=== PATIENT | female | born 1980 | race Caucasian/White ===

== ENCOUNTER → 2016-10-12 | Outpatient (CLI) | payer BC ==
--- NOTE | 2016-10-12 15:19 | CT ---
EXAMINATION TYPE: CT brain wo con DATE OF EXAM: 10/12/2016 3:14 PM COMPARISON: NONE HISTORY: Pt states of ROSE x11 days. CT DLP: 882.[address] of the brain was performed. The ventricles, basal cisterns and sulci overlying the cerebral convexities demonstrate a normal appe arance. There is no evidence for intracranial hemorrhage or sulcal effacement. No mass effects are seen. Osseous calvarium is intact. If symptoms persist consider MRI as clinically warranted. IMPRESSION: 1. No acute intracranial process is seen at this time.
== END | disposition home or self-care (01) ==
LOC: RADCTMAIN 14:51
PROVIDERS: ATTEND Family Medicine
DX: R51 Headache (principal)
CPT/HCPCS: 70450

== ENCOUNTER → 2016-11-09 | Outpatient (CLI) | payer BC ==
--- NOTE | 2016-11-09 16:03 | MR ---
EXAMINATION TYPE: MR brain wo con DATE OF EXAM: 11/09/2016 3:38 PM COMPARISON: NONE HISTORY: Headaches T1-weighted sagittal, T2, FLAIR, and diffusion axial, and T2 coronal coronal views of the brain are s ubmitted. There is no evidence of acute ischemia. The ventricles, basal cisterns, and sulci overlying the conv exities are consistent with the patient's age. There is no mass effect. Craniocervical junction maintained. Sella turcica has a normal appearance. Cyst within the posterior nasopharynx appears benign. Changes of chronic mild sinusitis noted. White matter: No abnormal areas of signal seen within the white matter. IMPRESSION: 1. No acute intracranial process. 2. Mild chronic sinusitis.
== END | disposition home or self-care (01) ==
LOC: RADMRIMAIN 14:42
PROVIDERS: ATTEND Family Medicine
DX: R51 Headache (principal); J32.9 Chronic sinusitis, unspecified
CPT/HCPCS: 70551

== ENCOUNTER → 2017-03-28 | Outpatient (CLI) | payer BC ==
[2017-03-28 17:58] LABS: Basophils # (A) 0.1 k/uL (0-0.2); Basophils % (A) 1 %; CH 32.7; CHCM 35.1; Eosinophils # (A) 0.1 k/uL (0-0.7); Eosinophils % (A) 1 %; HCT 38.1 % (34.0-46.0); HDW 2.47; HGB 13.3 gm/dL (11.4-16.0); Luc # (Auto) 0.19; Luc % (Auto) 2; Lymphocytes # (A) 3.5 k/uL (1.0-4.8); Lymphocytes % (A) 40 %; MCH 32.7 pg (25.0-35.0); MCHC 34.9 g/dL (31.0-37.0); MCV 93.7 fL (80.0-100.0); Monocytes # (A) 0.4 k/uL (0-1.0); Monocytes % (A) 4 %; Neutrophils # (A) 4.5 k/uL (1.3-7.7); Neutrophils % (A) 52 %; RBC 4.07 m/uL (3.80-5.40); RDW 13.8 % (11.5-15.5); WBC 8.7 k/uL (3.8-10.6); WBC (Perox) 8.42
[2017-03-28 18:13] LABS: Bilirubin, Delta 0.3 mg/dL (0.0-0.2); Total Bilirubin 0.8 mg/dL (0.2-1.3); Total Protein 7.6 g/dL (6.3-8.2)
== END | disposition home or self-care (01) ==
LOC: LABWHC1 17:00
PROVIDERS: ATTEND Physician Assistant
DX: B18.2 Chronic viral hepatitis C (principal)
CPT/HCPCS: 36415; 80076; 85025; 87522

== ENCOUNTER → 2017-04-09 | Outpatient (CLI) | payer BC ==
--- NOTE | 2017-04-09 11:20 | US ---
EXAMINATION TYPE: US liver DATE OF EXAM: 04/09/2017 COMPARISON: NONE CLINICAL HISTORY: Hep C B18.2. Chronic Hep C, pt has no complaints at this time EXAM MEASUREMENTS: Liver Length: 15.9 cm Gallbladder Wall: 0.3 cm CBD: 0.5 cm Right Kidney: 10.3 x 3.6 x 4.4 cm Pancreas: wnl, tail obscured by overlying bowel gas Liver: wnl Gallbladder: wnl Evidence for sonographic Segura's sign: No CBD: wnl Right Kidney: wnl IMPRESSION: 1. Unremarkable liver by ultrasound. 2. Right upper quadrant is unremarkable.
== END | disposition home or self-care (01) ==
LOC: RADUSWWP 10:50
DX: B18.2 Chronic viral hepatitis C (principal)
CPT/HCPCS: 76705

== ENCOUNTER → 2017-05-17 | Outpatient (CLI) | payer BC | END | disposition home or self-care (01) | LOC: LABWHC1 11:26 | PROVIDERS: ATTEND Physician Assistant | DX: B18.2 Chronic viral hepatitis C (principal) | CPT/HCPCS: 36415; 87902 ==

== ENCOUNTER 2017-09-09 21:01 | Emergency (ER) | payer BC ==
[2017-09-09 21:17] VITALS: BP 139/95; PULSE 71; RESP 18; TEMP 97.7
[2017-09-09] MEDS ORDERED: KETOROLAC 30 MG/ML 1 ML VIAL IM STA (21:34)
[2017-09-09] MEDS ORDERED: ORPHENADRINE 30 MG/ML 2 ML VIAL IM STA (21:34)
--- NOTE | 2017-09-09 21:44 | ED ---
Back Pain HPI - General Chief Complaint: Back Pain/Injury Stated Complaint: Back Pain Time Seen by Provider: 09/09/17 21:22 Source: patient, RN notes reviewed Limitations: no limitations - History of Present Illness Initial Comments: This is a 37-year-old female who presents to the emergency department with chief complaint of back pain. Patient states that she normally gets "knots" in her shoulders. However, this morning when she woke up today she had difficulty getting out of bed due to upper back pain. 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 Patient states that she laid in bed for most of the day. Patient states that the majority of her pain is localized between her shoulder blades, especially on the left side. Pain is made worse with bending backwards and neck movement, however denies any neck pain. Patient denies IV drug use. She states that she used to be an IV drug user and has hepatitis C, however has not used IV drugs in a long time. She denies saddle paresthesias or loss of bladder or bowel function. She denies any radiation of pain down the legs or numbness/tingling. Denies any falls, injuries or trauma. Denies fever, chills, chest pain, shortness of breath, abdominal pain, nausea or vomiting, constipation or diarrhea, dysuria or hematuria, numbness or tingling, headache or vision changes. - Related Data Home Medications Medication Instructions Recorded Confirmed Cetirizine HCl [Zyrtec] 10 mg PO DAILY PRN 08/20/17 08/20/17 Fluticasone Nasal [place] [Flonase 2 spr EA NOSTRIL DAILY PRN 08/20/17 08/20/17 Nasal [place]] Multivitamins, Thera [Multivitamin 1 tab PO DAILY 08/20/17 08/20/17 (formulary)] Previous Rx's Medication Instructions Recorded Cyclobenzaprine [Flexeril] 10 mg PO TID #21 tab 09/09/17 Ibuprofen 600 mg PO Q6HR #30 tablet 09/09/17 Allergies Allergy/AdvReac Type Severity Reaction Status Date / Time No Known Allergies Allergy Verified 09/09/17 21:17 Review of Systems ROS Statement: Those systems with pertinent positive or pertinent negative responses have been documented in the HPI. ROS Other: All systems not noted in ROS Statement are negative. Past Medical History Past Medical History: No Reported History Additional Past Medical History / Comment(s): hernia History of Any Multi-Drug Resistant Organisms: None Reported Past Surgical History: Orthopedic Surgery Additional Past Surgical History / Comment(s): righ ovary surgery Past Psychological History: No Psychological Hx Reported, Anxiety Smoking Status: Current every day smoker Past Alcohol Use History: None Reported Past Drug Use History: None Reported General Exam - General Exam Comments Initial Comments: General: Awake and alert, well-developed; in no apparent distress. HEENT: Head atraumatic, normocephalic. Pupils are equal, round and reactive to light. Extraocular movements intact. Oropharynx moist without erythema or exudate. Neck: Supple. Normal ROM. No tenderness. Back: Tenderness on palpation of left sided rhomboid and trapezius muscles. No vertebral bony point tenderness along the entire vertebrae. No SI joint tenderness. No paraspinal lumbar tenderness. Sensation is intact. Pedal pulses are 2+ equal and palpable bilaterally. Pain is elicited with flexion of shoulder. No tenderness with abduction or abduction of shoulder. Cardiovascular: Regular rate and rhythm. No murmurs, rubs or gallops. Chest symmetrical. Respiratory: Lungs clear to auscultation bilaterally. No wheezes, rales or rhonchi. Normal respiratory effort with no use of accessory muscles. Skin: [place], warm and dry without rashes or lesions. Neurological: Alert and oriented x3. CN II-XII grossly intact. Speech is fluent and answers are appropriate. No focal neuro deficits. Psychiatric: Normal mood and affect. No overt signs of depression or anxiety noted. Limitations: no limitations Course Vital Signs 09/09/17 21:13 Temperature 97.7 F Pulse Rate 71 Respiratory 18 Rate Blood Pressure 139/95 O2 Sat by Pulse 99 Oximetry Medical Decision Making - Medical Decision Making This is a 37-year-old female presents to the emergency department with chief complaint of upper back pain. Patient denies any injuries or trauma. She states that she thinks she "overdid it" yesterday. Patient denies any saddle paresthesias or loss of bladder or bowel function. She denies IV drug use. She denies any numbness or tingling or radiation of pain down the legs. Tenderness on palpation of left-sided rhomboid and trapezius muscles. Patient given Norflex and Toradol while in the emergency department. On reevaluation, patient states that she does not feel much better. I recommended x-ray of the scapula and thoracic spine, however patient declined. She states that she feels like she needs some more rest. Would like to be discharged home with prescription for anti-inflammatories and muscle relaxers and have the next couple of days off of work. The patient states that if symptoms worsen she will return to the emergency department. all questions were answered. Disposition Clinical Impression: Thoracic back pain Disposition: HOME SELF-CARE Condition: Good Instructions: Muscle Strain (ED), Musculoskeletal Pain (ED) Additional Instructions: Please take medications as prescribed. Please follow up with primary care provider within 1-2 days. Return to emergency department if symptoms should worsen or any concerns arise. Prescriptions: Cyclobenzaprine [Flexeril] 10 mg PO TID #21 tab Ibuprofen 600 mg PO Q6HR #30 tablet Referrals: Janny Barnett MD [Primary Care Provider] - 1-2 days Time of Disposition: 22:25
== END 2017-09-09 22:29 | disposition home or self-care (01) ==
LOC: EC 21:01
DX: M54.6 Pain in thoracic spine (principal); F17.200 Nicotine dependence, unspecified, uncomplicated; Z79.899 Other long term (current) drug therapy
CPT/HCPCS: 99283; 96372 ×2; J2360; J1885

== ENCOUNTER → 2017-09-11 | Outpatient (CLI) | payer BC | END | disposition home or self-care (01) | LOC: LABWHC1 09:00 | PROVIDERS: ATTEND Anesthesiology | DX: Z01.812 Encounter for preprocedural laboratory examination (principal) | CPT/HCPCS: 36415; 86850; 86900; 86901 ==

== ENCOUNTER 2017-09-17 08:57 | Day surgery (SDC) | payer BC ==
[2017-09-11 23:26] VITALS: BMI 29.2
[~2017-09-17 08:57] MED LIST: DEXAMETHASONE SOD PHOSPHATE 10 MG/ML 1 ML VIAL IV ONE; HEPARIN SODIUM,PORCINE 5,000 UNIT/ML 1 ML VIAL SQ ONE; LACTATED RINGERS 1,000 ML IV SCH; LIDOCAINE 1% 20 ML VIAL (10MG/ML) FOR IV START INTRADERMA PRN; MIDAZOLAM 2 MG/2 ML VIAL IV PRN; ONDANSETRON 4 MG/2 ML VIAL IVP ONE; SCOPOLAMINE 1.5MG/72HR PATCH TRANSDERM ONE
--- NOTE | 2017-09-17 09:30 | P.GSHP ---
History of Present Illness H&P Date: 09/17/17 Chief Complaint: Incarcerated ventral hernia, incarcerated umbilical hernia This is a 37-year-old female referred from Dr. Romeo Lucas. Patient rents today for laparoscopic robotic-assisted repair of incarcerated ventral hernia incarcerated umbilical hernia. Patient's 2 separate hernias ventral hernias located approximately 5 cm above the umbilicus. Past Medical History Past Medical History: No Reported History Additional Past Medical History / Comment(s): UMBILICAL AND VENTRAL HERNIA. BACK PAIN. SEASONAL ALLERGIES History of Any Multi-Drug Resistant Organisms: None Reported Past Surgical History: Orthopedic Surgery Additional Past Surgical History / Comment(s): SX RT WRIST. MASS REMOVED FROM RT OVARY Past Anesthesia/Blood Transfusion Reactions: No Reported Reaction Smoking Status: Current every day smoker - Past Family History Mother Family Medical History: No Reported History Medications and Allergies Home Medications Medication Instructions Recorded Confirmed Type Cetirizine HCl [Zyrtec] 10 mg PO DAILY PRN 08/20/17 09/17/17 History Fluticasone Nasal [place] [Flonase 2 spr EA NOSTRIL DAILY PRN 08/20/17 09/17/17 History Nasal [place]] Multivitamins, Thera [Multivitamin 1 tab PO DAILY 08/20/17 09/17/17 History (formulary)] Cyclobenzaprine [Flexeril] 10 mg PO TID #21 tab 09/09/17 09/17/17 Rx Ibuprofen 600 mg PO Q6HR #30 tablet 09/09/17 09/17/17 Rx Allergies Allergy/AdvReac Type Severity Reaction Status Date / Time No Known Allergies Allergy Verified 09/17/17 09:13 Surgical - Exam Vital Signs Temp Pulse Resp BP Pulse Ox 98.1 F 95 16 116/74 96 09/17/17 09:10 09/17/17 09:10 09/17/17 09:10 09/17/17 09:10 09/17/17 09:10 - General well developed, no distress - Eyes PERRL - ENT normal pinna - Neck no masses - Respiratory normal expansion - Cardiovascular Rhythm: regular - Abdomen Abdomen: soft, non tender Hernia: epigastric (3 cm midline epigastric ventral hernia), umbilical (2 cm incarcerated umbilical hernia) Assessment and Plan Assessment: incarcerated umbilical and ventral hernia, will perform robotic repair
[2017-09-17] MEDS ORDERED: fentaNYL (PF) 50 MCG/ML 2 ML AMP ONE (09:38)
[2017-09-17] MEDS ORDERED: GLYCOPYRROLATE 0.2 MG/ML 2 ML VIAL ONE (09:38)
[2017-09-17] MEDS ORDERED: PROPOFOL 10 MG/ML 20 ML VIAL IV ONE (09:38)
[2017-09-17] MEDS ORDERED: LIDOCAINE 1% INJ 10MG/ML (20 ML MDV) ONE (09:38)
[2017-09-17] MEDS ORDERED: HYDROmorphone (PF) 1 MG/ML ONE (09:38)
[2017-09-17] MEDS ORDERED: ROCURONIUM BROMIDE 10 MG/ML 10 ML VIAL IV ONE (09:38)
[2017-09-17] MEDS ORDERED: NEOSTIGMINE 1 MG/ML 10 ML VIAL ONE (09:38)
[2017-09-17] MEDS ORDERED: SUCCINYLCHOLINE CHLORIDE 100 MG/5 ML SYR IV ONE (09:38)
[2017-09-17] MEDS: ceFAZolin IN SWFI 2 GM/20 ML SYRINGE IVP ONE ×3 (09:38→09:57)
[2017-09-17] MEDS ORDERED: MIDAZOLAM 2 MG/2 ML VIAL ONE (09:38)
[2017-09-17] MEDS ORDERED: BUPIVACAINE-EPI 0.5%-1:200,000 10 ML VIAL SQ ONE (09:53)
--- NOTE | 2017-09-17 11:04 | P.OP ---
Date of Procedure: 09/17/17 Preoperative Diagnosis: Incarcerated umbilical hernia Incarcerated ventral hernia Postoperative Diagnosis: Incarcerated umbilical hernia Incarcerated ventral hernia Procedure(s) Performed: Laparoscopic robotic-assisted repair of incarcerated umbilical hernia Laparoscopic robotic-assisted repair of incarcerated ventral hernia Anesthesia: OLLIE Surgeon: Saul Corona Estimated Blood Loss (ml): 5 Pathology: none sent Condition: stable Disposition: PACU Description of Procedure: The patient's placed on the operating table in the supine position. She received general anesthesia. Her abdomen was prepped and draped usual fashion. Using a 5 mm optical trocar under direct visualization the Cavity is entered. The abdomen insufflated. After adequate insufflation the laparoscope placed back into the perineal cavity. Next a 8 mm by trochars placed left lower quadrant and a 12 mm robotic trochars placed left lateral position. The original 5 mm trocar was exchanged for an 8 mm robotic trocar. The patient was placed in the left side up position. The patient was docked the robot. The patient had incarcerated ventral hernia. Using the hook cautery the incarcerated Fat was excised. In the fascial defect was visualized. The fascial defect was then closed using oh the lock suture. Next the incarcerated umbilical hernia repair. Using the cautery the incarcerated fat within the umbilicus was dissected free. And then the fascial defect was closed OV lock suture. Next a piece of 10 x [address] mesh was placed. Cavity. This was secured with 2 OV lock suture. The mesh spanned over both hernia sites. Next the patient was undocked from the robot. The needles were retrieved. The fascia of the 12 mm trocar site was closed with 0 Ethibond suture. The trochars were withdrawn. And the skin was closed interrupted 3-0 Monocryl suture. Dermabond was applied. Patient top she will was sent to recovery in stable condition.
[2017-09-17] MEDS ORDERED: diphenhydrAMINE 50 MG/ML 1 ML VIAL IVP ONE (11:07)
[2017-09-17] MEDS ORDERED: KETOROLAC 30 MG/ML 1 ML VIAL IVP ONE (11:07)
[2017-09-17 11:14] VITALS: TEMP 98.4
[2017-09-17] MEDS: HYDROmorphone 0.5 MG/0.5 ML SYRINGE IVP PRN ×4 (11:20→11:58)
[2017-09-17 11:47] VITALS: RESP 18
[2017-09-17] MEDS ORDERED: MEPERIDINE 50 MG/ML SYRINGE IVP ONE (12:00)
[2017-09-17] MEDS ORDERED: HYDROcodone/APAP 7.5-325MG 1 EACH TAB PO ONE (12:30)
[2017-09-17 13:10] VITALS: BP 110/79; PULSE 94
== END 2017-09-17 13:54 | disposition home or self-care (01) ==
LOC: OR 08:57
PROVIDERS: ATTEND Surgery
DX: K42.0 Umbilical hernia with obstruction, without gangrene (principal); K43.6 Other and unspecified ventral hernia with obstruction, without gangrene; F17.200 Nicotine dependence, unspecified, uncomplicated; Z79.1 Long term (current) use of non-steroidal anti-inflammatories (NSAID); Z79.899 Other long term (current) drug therapy; Z91.09 Other allergy status, other than to drugs and biological substances
CPT/HCPCS: 49653; S2900; 36415; 81025; 86850; 86900; 86901

== ENCOUNTER 2017-10-08 08:25 | Day surgery (SDC) | payer BC ==
[2017-10-07 12:53] VITALS: BMI 29.2
[~2017-10-08 08:25] MED LIST changes: -DEXAMETHASONE SOD PHOSPHATE 10 MG/ML 1 ML VIAL IV ONE; -HEPARIN SODIUM,PORCINE 5,000 UNIT/ML 1 ML VIAL SQ ONE; -LIDOCAINE 1% 20 ML VIAL (10MG/ML) FOR IV START INTRADERMA PRN; -MIDAZOLAM 2 MG/2 ML VIAL IV PRN; -ONDANSETRON 4 MG/2 ML VIAL IVP ONE; -SCOPOLAMINE 1.5MG/72HR PATCH TRANSDERM ONE
[2017-10-08 09:30] VITALS: TEMP 97.1
[2017-10-08] MEDS ORDERED: LIDOCAINE 1% 20 ML VIAL (10MG/ML) FOR IV START INTRADERMA ONE (09:30)
[2017-10-08] MEDS ORDERED: fentaNYL (PF) 50 MCG/ML 2 ML AMP ONE (09:41)
[2017-10-08] MEDS ORDERED: PROPOFOL 10 MG/ML 20 ML VIAL IV ONE (09:41)
[2017-10-08] MEDS ORDERED: GLYCOPYRROLATE 0.2 MG/ML 2 ML VIAL ONE (09:41)
--- NOTE | 2017-10-08 09:42 | P.GSHP ---
History of Present Illness H&P Date: 10/08/17 Chief Complaint: GI bleed This is a 37-year-old female who's had complaints of black melanotic stools. Patient presents today for EGD. Past Medical History Past Medical History: No Reported History Additional Past Medical History / Comment(s): hernia. pt states has been having blood in stools since last week History of Any Multi-Drug Resistant Organisms: None Reported Past Surgical History: Hernia Repair, Orthopedic Surgery Additional Past Surgical History / Comment(s): righ ovary surgery Past Anesthesia/Blood Transfusion Reactions: No Reported Reaction Past Psychological History: Anxiety Smoking Status: Current every day smoker Past Alcohol Use History: None Reported Additional Past Alcohol Use History / Comment(s): SMOKES 1/2 PPD SINCE AGE 12 Past Drug Use History: None Reported - Past Family History Mother Family Medical History: No Reported History Medications and Allergies Home Medications Medication Instructions Recorded Confirmed Type Cetirizine HCl [Zyrtec] 10 mg PO DAILY PRN 08/20/17 10/07/17 History Fluticasone Nasal [place] [Flonase 2 spr EA NOSTRIL DAILY PRN 08/20/17 10/07/17 History Nasal [place]] Ibuprofen 600 mg PO Q6HR #30 tablet 09/09/17 10/07/17 Rx diphenhydrAMINE [Benadryl] 25 mg PO BID PRN 10/07/17 10/07/17 History Diphenhydra/Phenyleph/Acetamin 1 each PO DIRECTED PRN 10/08/17 10/08/17 History [Theraflu Expressmax Night Cplt] Allergies Allergy/AdvReac Type Severity Reaction Status Date / Time No Known Allergies Allergy Verified 10/07/17 12:47 Surgical - Exam Vital Signs Temp Pulse Resp BP Pulse Ox 97.1 F L 86 18 118/81 99 10/08/17 09:28 10/08/17 09:28 10/08/17 09:28 10/08/17 09:28 10/08/17 09:28 - General well developed, no distress - Eyes PERRL - ENT normal pinna - Neck no masses - Respiratory normal expansion - Cardiovascular Rhythm: regular - Abdomen Abdomen: soft, non tender Assessment and Plan Assessment: GI bleed. We'll perform EGD.
--- NOTE | 2017-10-08 10:04 | P.OP ---
Date of Procedure: 10/08/17 Preoperative Diagnosis: GI bleed Postoperative Diagnosis: Antral gastritis Procedure(s) Performed: EGD Anesthesia: MAC Surgeon: Saul Corona Pathology: other (Antrum) Condition: stable Disposition: PACU Description of Procedure: The patient's placed on the endoscopy table in the lateral position. She received IV sedation. The gastroscope placed oropharynx and passed in the esophagus and into the stomach. Scope was then placed through the pylorus. The first and second portion of the duodenum appeared normal. The scope was then brought back the antrum and this appeared inflamed. A biopsies was performed. The scope was then retroflexed and the remainder of the stomach appeared normal. There was no significant hiatal hernia. The GE junction was at 40 cm. The distal esophagus and proximal esophagus. Normal. Scope was withdrawn for patient.
[2017-10-08 10:11] VITALS: BP 107/65; PULSE 78; RESP 18
== END 2017-10-08 10:27 | disposition home or self-care (01) ==
LOC: ORWHC2ENDO 08:25
PROVIDERS: ATTEND Surgery
DX: K29.50 Unspecified chronic gastritis without bleeding (principal); B96.81 Helicobacter pylori [H. pylori] as the cause of diseases classified elsewhere; B19.20 Unspecified viral hepatitis C without hepatic coma; F17.210 Nicotine dependence, cigarettes, uncomplicated; Z79.1 Long term (current) use of non-steroidal anti-inflammatories (NSAID); Z79.899 Other long term (current) drug therapy
CPT/HCPCS: 81025; 88305; 88342; 43239; J3010; J2704

== ENCOUNTER → 2017-12-20 | Outpatient (CLI) | payer BC ==
[2017-12-20 14:52] LABS: Albumin 4.3 g/dL (3.5-5.0); Bilirubin, Delta 0.2 mg/dL (0.0-0.2); Bilirubin,Unconjugated 0.5 mg/dL (0.0-1.1); Total Bilirubin 0.7 mg/dL (0.2-1.3); Total Protein 7.2 g/dL (6.3-8.2)
[2017-12-20 14:55] LABS: Basophils # (A) 0.1 k/uL (0-0.2); Basophils % (A) 1 %; Eosinophils # (A) 0.1 k/uL (0-0.7); Eosinophils % (A) 1 %; HCT 34.5 % (34.0-46.0); HGB 12.3 gm/dL (11.4-16.0); Lymphocytes % (A) 42 %; MCH 31.6 pg (25.0-35.0); MCHC 35.5 g/dL (31.0-37.0); MCV 88.9 fL (80.0-100.0); Mean Platelet Volume 7.2; Monocytes # (A) 0.3 k/uL (0-1.0); Monocytes % (A) 4 %; Neutrophils # (A) 3.4 k/uL (1.3-7.7); Neutrophils % (A) 48 %; Platelet Count 300 k/uL (150-450); RBC 3.89 m/uL (3.80-5.40); WBC 7.1 k/uL (3.8-10.6)
[2017-12-23 09:34] LABS: Hepatits C Virus RNA Not detected (Not detected); Hepatits C Virus RNA, Quant <12 IU/mL (<12); LOG HCV IU/mL <1.08 (<1.08)
== END | disposition home or self-care (01) ==
LOC: LABWHC1 14:17
PROVIDERS: ATTEND Physician Assistant
DX: B18.2 Chronic viral hepatitis C (principal)
CPT/HCPCS: 36415; 80076; 85025; 87522

== ENCOUNTER → 2019-06-19 | Outpatient (CLI) | payer BC ==
--- NOTE | 2019-06-19 08:23 | MR ---
EXAMINATION TYPE: MR brain wo con DATE OF EXAM: 06/19/2019 COMPARISON: MRI brain November 09, 2016. CT brain October 12, 2016 HISTORY: Headache TECHNIQUE: Multiplanar, multisequence imaging of the brain and brainstem is performed without IV cont rast. FINDINGS: Diffusion weighted images demonstrate no evidence of a recent infarct or other diffusion abnormality. There is no extraaxial fluid collection or significant white matter signal abnormality. The ventricu lar system and cisternal spaces are normal in size and appearance. The brain volume is age appropria te. Midline structures demonstrate normal morphology. The craniocervical junction appears within normal limits. Normal vascular flow voids are present. Stable mild mucosal thickening bilateral ethmoid sinu ses. The visualized sinuses are otherwise clear and the globes are intact. Nasal septum remains devia estelita to left of midline. IMPRESSION: No significant change from prior studies. No suspicious white matter changes or new findi ngs are identified.
== END | disposition home or self-care (01) ==
LOC: RADMRIMAIN 07:30
PROVIDERS: ATTEND Family Medicine
DX: R51 Headache (principal)
CPT/HCPCS: 70551

== ENCOUNTER → 2019-08-14 | Outpatient (CLI) | payer BC | END | disposition home or self-care (01) | LOC: LABWHC1 15:47 | PROVIDERS: ATTEND Obstetrics & Gynecology | DX: N95.1 Menopausal and female climacteric states (principal) | CPT/HCPCS: 36415; 82670; 84144 ==

== ENCOUNTER 2019-09-06 15:17 | Emergency (ER) | payer BC | END 2019-09-06 16:10 | disposition left against medical advice (07) | LOC: EC 15:17 | DX: Z53.21 Procedure and treatment not carried out due to patient leaving prior to being seen by health care provider (principal) | CPT/HCPCS: 99499 ==

== ENCOUNTER 2019-09-09 13:10 | Emergency (ER) | payer BC, OTHER ==
[2019-09-09 13:19] VITALS: BP 130/87; PULSE 98; RESP 20; TEMP 97.9
[2019-09-09] MEDS ORDERED: predniSONE 50 MG TAB PO STA (14:10)
[2019-09-09] MEDS ORDERED: CYCLOBENZAPRINE 10MG STARTER 3 TAB BTL PO STA (14:45)
[2019-09-09] MEDS ORDERED: ACET/COD 300 MG/30 MG STARTER PACK 6 TAB BTL PO STA (14:48)
--- NOTE | 2019-09-09 14:56 | ED ---
General Adult HPI - General Chief complaint: Back Pain/Injury Stated complaint: [facility] - low back pain Time Seen by Provider: 09/09/19 13:28 Source: patient, RN notes reviewed, old records reviewed Mode of arrival: ambulatory Limitations: no limitations - History of Present Illness Initial comments: 39-year-old female patient presented to ED for chief complaint of paralumbar back strain. Patient reports that yesterday while at work she was bending over to grab something, patient reports that she felt as if her left paralumbar back and then she fell towards a file cabinet. Denies any loss of consciousness, trauma to head or neck. Reports that after the fall she initially felt fine. Then she began experience left paralumbar back pain and tightness. She reports that she went to occupational health that day with a tick x-rays which are negative and sent her home with a prescription for muscle relaxers and ibuprofen. Patient was assessed on her lumbar back is been very tight. She has been having some waxing and waning paresthesias in her feet. Force of the pain is going down the back of her left leg. She has still been able to without diff iculty. Denies any red flag symptoms. Denies any saddle anesthesia, loss of bowel or bladder control. Denies any other complaints at this time. Systemic: Pt denies fatigue, fever/chills, rash. Pt denies weakness, night sweats, weight loss. Neuro: Pt denies headache, visual disturbances, syncope or pre-syncope. HEENT: Pt denies ocular discharge or irritation, otalgia, rhinorrhea, pharyngitis or notable lymphadenopathy. Cardiopulmonary: Pt denies chest pain, SOB, heart palpitations, dyspnea on exertion. Abdominal/GI: Pt denies abdominal pain, n/v/d. : Pt denies dysuria, burning w/ urination, frequency/urgency. Denies new onset urinary or bowel incontinence. MSK: Pt denies myalgia, loss of strength or function in extremities. Neuro: Pt denies new onset weakness, paresthesias. - Related Data Home Medications Medication Instructions Recorded Confirmed Cetirizine HCl [Zyrtec] 10 mg PO DAILY PRN 08/20/17 10/07/17 Fluticasone Nasal [place] [Flonase 2 spr EA NOSTRIL DAILY PRN 08/20/17 10/07/17 Nasal [place]] diphenhydrAMINE [Benadryl] 25 mg PO BID PRN 10/07/17 10/07/17 Diphenhydra/Phenyleph/Acetamin 1 each PO DIRECTED PRN 10/08/17 10/08/17 [Theraflu Expressmax Night Cplt] Previous Rx's Medication Instructions Recorded Ibuprofen 600 mg PO Q6HR #30 tablet 09/09/17 Omeprazole 40 mg PO DAILY #60 capsule. 10/08/17 predniSONE 50 mg PO DAILY #4 tab 09/09/19 Allergies Allergy/AdvReac Type Severity Reaction Status Date / Time No Known Allergies Allergy Verified 09/09/19 13:19 Review of Systems ROS Statement: Those systems with pertinent positive or pertinent negative responses have been documented in the HPI. ROS Other: All systems not noted in ROS Statement are negative. Past Medical History Past Medical History: No Reported History Additional Past Medical History / Comment(s): hernia. pt states has been having blood in stools since last week History of Any Multi-Drug Resistant Organisms: None Reported Past Surgical History: Hernia Repair, Orthopedic Surgery Additional Past Surgical History / Comment(s): righ ovary surgery Past Anesthesia/Blood Transfusion Reactions: No Reported Reaction Past Psychological History: Anxiety Smoking Status: Current every day smoker Past Alcohol Use History: None Reported Past Drug Use History: None Reported - Past Family History Mother Family Medical History: No Reported History General Exam - General Exam Comments Initial Comments: Constitutional: NAD, AOX3, Pt has pleasant affect. HEENT: NC/AT, trachea midline, neck supple, no lymphadenopathy. Posterior pharynx non erythematous, without exudates. External ears appear normal, without discharge. Mucous membranes moist. Eyes PERRLA, EOM intact. There is no scleral icterus. No pallor noted. Cardiopulmonary: RRR, no murmurs, rubs or gallops, no JVD noted. Lungs CTAB in anterior and posterior rogers. No peripheral edema. Abdominal exam: Abdomen soft and non-distended. Abdomen non-tender to palpation in all 4 quadrants. Bowel sounds active in LLQ. No hepatosplenomegaly. No ecchymosis Neuro: CN II-XII grossly intact. No nuchal rigidity. No raccon eyes, no lizama sign, no hemotympanum. No cervical spinal tenderness. MSK: Left Paralumbar back region tender to palpation. No skin changes. Straight leg raise positive bilaterally. Heel to toe walking intact. Motor 5 strength psoas quadriceps muscles. Sensation intact. No posterior calf tenderness bilaterally, homans sign negative bilaterally. Posterior tibialis and radial pulse +2 bilaterally. Sensation intact in upper and lower extremities. Full active ROM in upper and lower extremities, 5/5 stregnth. Limitations: no limitations Course Vital Signs 09/09/19 13:17 Temperature 97.9 F Pulse Rate 98 Respiratory 20 Rate Blood Pressure 130/87 O2 Sat by Pulse 99 Oximetry Medical Decision Making - Medical Decision Making 39-year-old female patient presents to ED for chief complaint of lumbar back strain with radiculopathy. This began yesterday. Patient reports that since yesterday she has become more tight, has had some paresthesias in her feet. Denies any red flag symptoms. Physical exam is consistent with lumbar back strain with radiculopathy. Patient declined plain films of the day and yesterday. Patient will be discharged with steroids, trial of different muscle relaxer, outpatient orthopedic follow-up. Return to ER if condition worsen. Patient denies a chance of being . Case discussed with Dr. Villa. Disposition Clinical Impression: Lumbar back sprain Disposition: HOME SELF-CARE Condition: Stable Instructions (If sedation given, give patient instructions): Acute Low Back Pain (ED) Additional Instructions: Follow-up with primary care provider tomorrow. Take medications as directed. May attempt to use Flexeril for muscle spasm. Either use the Flexeril or the previously prescribed muscle relaxer, do not use both in one day. Follow up with orthopedic consult symptoms persist. Return to ER if condition worsens. Prescriptions: predniSONE 50 mg PO DAILY #4 tab Is patient prescribed a controlled substance at d/c from ED?: No Referrals: Janny Barnett MD [Primary Care Provider] - 1-2 days Kaylynn Whitaker DO [Doctor of Osteopathic Medicine] - 1-2 days
== END 2019-09-09 15:09 | disposition home or self-care (01) ==
LOC: EC 13:10
DX: S33.5XXA Sprain of ligaments of lumbar spine, initial encounter (principal); F17.200 Nicotine dependence, unspecified, uncomplicated; X50.9XXA Other and unspecified overexertion or strenuous movements or postures, initial encounter; Y92.69 Other specified industrial and construction area as the place of occurrence of the external cause; Y99.0 Civilian activity done for income or pay
CPT/HCPCS: 99283; J7512

== ENCOUNTER → 2020-10-21 | Outpatient (CLI) | payer BC | END | disposition home or self-care (01) | LOC: LABWHC1 15:08 | PROVIDERS: ATTEND Obstetrics & Gynecology | DX: N95.1 Menopausal and female climacteric states (principal) | CPT/HCPCS: 36415; 82670; 84144 ==

== ENCOUNTER → 2021-03-09 | Outpatient (CLI) | payer BC ==
[2021-03-09 18:20] LABS: HCT 42.5 % (37.2-46.3); MCH 32.5 pg (27.0-32.0); MCHC 32.9 g/dL (32.0-37.0); MCV 98.6 fL (80.0-97.0); Mean Platelet Volume 10.9 fL (9.5-12.2); Platelet Count 251 X 10*3/uL (140-440); RBC 4.31 X 10*6/uL (4.10-5.20); RDW 12.9 % (11.5-14.5); WBC 8.82 X 10*3/uL (4.50-10.00)
[2021-03-09 21:22] LABS: Total Bilirubin 0.7 mg/dL (0.2-1.2)
[2021-03-09 21:23] LABS: Valproic Acid (Depakene) 31.3 ug/mL (50.0-100.0)
== END | disposition home or self-care (01) ==
LOC: LABWHC1 11:51
PROVIDERS: ATTEND Psychiatry & Neurology Psychiatry
DX: F31.32 Bipolar disorder, current episode depressed, moderate (principal)
CPT/HCPCS: 36415; 80164; 82247; 82947; 83615; 84450; 84460; 85027

== ENCOUNTER → 2021-04-18 | Outpatient (CLI) | payer BC ==
[2021-04-18 22:30] LABS: Hemoglobin A1C 5.1 % (4.0-6.0)
[2021-04-19 04:06] LABS: Chol/HDL Ratio 6.24; LDL Cholesterol,Calculated 172.2 mg/dL (0.0-131.0); VLDL Calculation 63.8 mg/dL (5.00-40.00)
== END | disposition home or self-care (01) ==
LOC: LABWHC1 12:19
PROVIDERS: ATTEND Physician Assistant
DX: F31.32 Bipolar disorder, current episode depressed, moderate (principal)
CPT/HCPCS: 36415; 80061; 83036

== ENCOUNTER → 2021-08-21 | Outpatient (CLI) | payer BC ==
[2021-08-21 08:38] LABS: Appearance,Urine Clear (Clear); Bilirubin,Urine Negative (Negative); Blood,Urine Negative (Negative); Color,Urine Yellow; Glucose,Urine (UA) Negative (Negative); Ketones,Urine Negative (Negative); Leukocyte Esterase,Urine Negative (Negative); Nitrite,Urine Negative (Negative); PH, Urine 7.5 (5.0-8.0); Protein,Urine Negative (Negative); Urobilinogen,Urine <2.0 mg/dL (<2.0)
[2021-08-21 11:13] LABS: Basophils # (A) 0.07 X 10*3/uL (0.00-0.10); Basophils % (A) 0.6 %; Eosinophils # (A) 0.08 X 10*3/uL (0.04-0.35); Eosinophils % (A) 0.7 %; HCT 42.8 % (37.2-46.3); HGB 14.4 g/dL (12.0-15.0); Lymphocytes # (A) 3.13 X 10*3/uL (0.90-5.00); Lymphocytes % (A) 27.1 %; MCH 32.4 pg (27.0-32.0); MCHC 33.6 g/dL (32.0-37.0); MCV 96.2 fL (80.0-97.0); Mean Platelet Volume 11.2 fL (9.5-12.2); Monocytes # (A) 0.58 X 10*3/uL (0.20-1.00); Neutrophils # (A) 7.64 X 10*3/uL (1.80-7.70); Neutrophils % (A) 66.3 %; Platelet Count 252 X 10*3/uL (140-440); RBC 4.45 X 10*6/uL (4.10-5.20); RDW 13.5 % (11.5-14.5); WBC 11.53 X 10*3/uL (4.50-10.00)
[2021-08-21 11:47] LABS: Valproic Acid (Depakene) 28.7 ug/mL (50.0-100.0)
[2021-08-21 11:52] LABS: ALT 15 U/L (8-44); AST 14 U/L (13-35); African American GFR (CKD) 115.9 (60.0-200.0); Albumin 4.3 g/dL (3.8-4.9); Albumin/Globulin Ratio 2.13 (1.60-3.17); Alkaline Phosphatase 63 U/L (41-126); BUN/Creat Ratio 11.29 Ratio (12.00-20.00); Blood Urea Nitrogen 8.4 mg/dL (9.0-27.0); Calcium 9.1 mg/dL (8.7-10.3); Carbon Dioxide 18.9 mmol/L (20.0-27.5); Chloride 107 mmol/L (96-109); Chol/HDL Ratio 2.68 Ratio; Glucose 101 mg/dL (70-110); LDL Cholesterol,Calculated 44.4 mg/dL (0.0-131.0); Potassium 4.8 mmol/L (3.5-5.5); Sodium 139 mmol/L (135-145); Total Protein 6.3 g/dL (6.2-8.2)
== END | disposition home or self-care (01) ==
LOC: LABWHC1 07:42
PROVIDERS: ATTEND Nurse Practitioner Psychiatric/Mental Health
DX: F31.32 Bipolar disorder, current episode depressed, moderate (principal)
CPT/HCPCS: 36415; 80053; 80061; 80164; 81003; 81025; 85025

== ENCOUNTER 2022-01-13 21:21 | Emergency (ER) | payer BC ==
[2022-01-13 21:25] VITALS: BP 121/85; PULSE 86; RESP 18; TEMP 97.5
--- NOTE | 2022-01-13 21:53 | ED ---
Medical Clearance HPI - General Chief complaint: Medical Clearance Stated complaint: Long-Term Clearance, Right Wrist Injury Time Seen by Provider: 01/13/22 21:41 Source: patient, RN notes reviewed, old records reviewed Mode of arrival: ambulatory Limitations: no limitations - History of Present Illness Initial comments: This is a 41-year-old female presenting by EMS patient's presenting today for evaluation of penitentiary clearance. Patient is complaining of right wrist pain. Patient is very argumentative angry during evaluation. Patient denying any significant distress or pain MD Complaint: medical clearance requested -: hour(s) Reason for Medical Clearance: other trauma Place: street Alleged Intoxication: No Compliant with Home Medications: No Traumatic Symptoms: denies traumatic injury Treatments Prior to Arrival: none Home medications: Home Medications Medication Instructions Recorded Confirmed Cetirizine HCl [Zyrtec] 10 mg PO DAILY PRN 08/20/17 10/07/17 Fluticasone Nasal [place] [Flonase 2 spr EA NOSTRIL DAILY PRN 08/20/17 10/07/17 Nasal [place]] diphenhydrAMINE [Benadryl] 25 mg PO BID PRN 10/07/17 10/07/17 Diphenhydra/Phenyleph/Acetamin 1 each PO DIRECTED PRN 10/08/17 10/08/17 [Theraflu Expressmax Night Cplt] Previous Rx's Medication Instructions Recorded Ibuprofen 600 mg PO Q6HR #30 tablet 09/09/17 Omeprazole 40 mg PO DAILY #60 capsule. 10/08/17 predniSONE 50 mg PO DAILY #4 tab 09/09/19 Allergies/Adverse reactions: Allergies Allergy/AdvReac Type Severity Reaction Status Date / Time No Known Allergies Allergy Verified 01/13/22 21:24 Review of Systems ROS Statement: Those systems with pertinent positive or pertinent negative responses have been documented in the HPI. ROS Other: All systems not noted in ROS Statement are negative. Past Medical History Past Medical History: No Reported History Additional Past Medical History / Comment(s): hernia. pt states has been having blood in stools since last week History of Any Multi-Drug Resistant Organisms: None Reported Past Surgical History: Hernia Repair, Orthopedic Surgery Additional Past Surgical History / Comment(s): righ ovary surgery Past Anesthesia/Blood Transfusion Reactions: No Reported Reaction Past Psychological History: Anxiety Smoking Status: Never smoker Past Alcohol Use History: Daily Past Drug Use History: None Reported - Past Family History Mother Family Medical History: No Reported History General Exam Limitations: no limitations General appearance: alert, in no apparent distress Head exam: Present: atraumatic, normocephalic, normal inspection Eye exam: Present: normal appearance, PERRL, EOMI. Absent: scleral icterus, conjunctival injection, periorbital swelling ENT exam: Present: normal exam, mucous membranes moist Neck exam: Present: normal inspection. Absent: tenderness, meningismus, lymphadenopathy Respiratory exam: Present: normal lung sounds bilaterally. Absent: respiratory distress, wheezes, rales, rhonchi, stridor Cardiovascular Exam: Present: regular rate, normal rhythm, normal heart sounds. Absent: systolic murmur, diastolic murmur, rubs, gallop, clicks GI/Abdominal exam: Present: soft, normal bowel sounds. Absent: distended, tenderness, guarding, rebound, rigid Extremities exam: Present: normal inspection, full ROM, normal capillary refill. Absent: tenderness, pedal edema, joint swelling, calf tenderness Back exam: Present: normal inspection Neurological exam: Present: alert, oriented X3, CN II-XII intact Psychiatric exam: Present: normal affect, normal mood Skin exam: Present: warm, dry, intact, normal color. Absent: rash Course Vital Signs 01/13/22 21:22 Temperature 97.5 F L Pulse Rate 86 Respiratory 18 Rate Blood Pressure 121/85 O2 Sat by Pulse 99 Oximetry - Reevaluation(s) Reevaluation #1: 01/13/22 21:50 Medical record is reviewed Reevaluation #2: 01/13/22 21:50 patient is in no acute distress Reevaluation #3: 01/13/22 21:50 patient questions are answered Medical Decision Making - Medical Decision Making 41 female to the emergency department for evaluation. Patient does have some wrist pain. X-ray negative. Patient is medically clear for incarceration and can be discharged home - Radiology Data Radiology results: report reviewed (X-ray was negative for acute disease), image reviewed Disposition Clinical Impression: Medical clearance for incarceration Disposition: HOME SELF-CARE Condition: Fair Instructions (If sedation given, give patient instructions): Normal Exam (ED) Is patient prescribed a controlled substance at d/c from ED?: No Referrals: Janny Barnett MD [Primary Care Provider] - 1-2 days
--- NOTE | 2022-01-13 21:58 | XR ---
EXAMINATION TYPE: XR wrist limited RT DATE OF EXAM: 01/13/2022 COMPARISON: NONE HISTORY: Wrist pain TECHNIQUE: 2 views FINDINGS: There is comminuted nondisplaced oblique fracture of the proximal shaft of the fifth metaca rpal. There is mild soft tissue swelling. No dislocation. IMPRESSION: Acute fracture of the proximal fifth metacarpal.
== END 2022-01-13 22:53 | disposition home or self-care (01) ==
LOC: EC 21:21
DX: Z02.89 Encounter for other administrative examinations (principal)
CPT/HCPCS: 99283

== ENCOUNTER → 2022-05-18 | Outpatient (CLI) | payer BC ==
[2022-05-18 18:22] LABS: Basophils # (A) 0.07 X 10*3/uL (0.00-0.10); Eosinophils # (A) 0.06 X 10*3/uL (0.04-0.35); Eosinophils % (A) 0.8 %; HCT 39.6 % (37.2-46.3); HGB 13.2 g/dL (12.0-15.0); Immature Grans, Automated 0.3 %; Lymphocytes % (A) 41.2 %; MCH 32.7 pg (27.0-32.0); MCHC 33.3 g/dL (32.0-37.0); Mean Platelet Volume 10.1 fL (9.5-12.2); Monocytes # (A) 0.39 X 10*3/uL (0.20-1.00); Monocytes % (A) 5.4 %; NRBC Per 100 WBC 0 /100 WBCS (0.0-0.0); Neutrophils # (A) 3.74 X 10*3/uL (1.80-7.70); Neutrophils % (A) 51.3 %; Platelet Count 309 X 10*3/uL (140-440); RBC 4.04 X 10*6/uL (4.10-5.20); RDW 12.9 % (11.5-14.5); WBC 7.28 X 10*3/uL (4.50-10.00)
[2022-05-18 19:07] LABS: Valproic Acid (Depakene) 18.2 ug/mL (50.0-100.0)
[2022-05-18 19:27] LABS: ALT 18 U/L (8-44); AST 13 U/L (13-35); Albumin 4.5 g/dL (3.8-4.9); Albumin/Globulin Ratio 2.14 (1.60-3.17); Alkaline Phosphatase 62 U/L (41-126); BUN/Creat Ratio 12.78 Ratio (12.00-20.00); Bilirubin, Conjugated <0.20 mg/dL (0.20-0.40); Blood Urea Nitrogen 11.5 mg/dL (9.0-27.0); Calcium 9.7 mg/dL (8.7-10.3); Carbon Dioxide 24.1 mmol/L (20.0-27.5); Chloride 106 mmol/L (96-109); Chol/HDL Ratio 4.41 Ratio; Globulin 2.1 g/dL (1.6-3.3); Glucose 93 mg/dL (70-110); LDL Cholesterol,Calculated 137.8 mg/dL (0.0-131.0); Non-African American GFR(CKD) 79.4 (60.0-200.0); Potassium 5.3 mmol/L (3.5-5.5); Sodium 141 mmol/L (135-145); Total Protein 6.6 g/dL (6.2-8.2)
== END | disposition home or self-care (01) ==
LOC: LABWHC1 11:04
DX: F31.32 Bipolar disorder, current episode depressed, moderate (principal); F43.12 Post-traumatic stress disorder, chronic
CPT/HCPCS: 36415; 80053; 80061; 80164; 82248; 82306; 83036; 85025

== ENCOUNTER → 2022-06-06 | Outpatient (CLI) | payer BC | END | disposition home or self-care (01) | LOC: LABWHC1 09:07 | PROVIDERS: ATTEND Counselor Professional | DX: F31.32 Bipolar disorder, current episode depressed, moderate (principal) | CPT/HCPCS: 36415; 80164 ==

== ENCOUNTER → 2023-02-26 | Outpatient (CLI) | payer BC ==
[2023-02-27 05:23] LABS: Basophils # (A) 0.07 X 10*3/uL (0.00-0.10); Eosinophils # (A) 0.08 X 10*3/uL (0.04-0.35); Eosinophils % (A) 1.1 %; HCT 39.8 % (37.2-46.3); Lymphocytes # (A) 3.19 X 10*3/uL (0.90-5.00); Lymphocytes % (A) 43.7 %; MCH 31.3 pg (27.0-32.0); MCHC 32.7 d/dL (32.0-37.0); MCV 95.7 FL (80.0-97.0); Mean Platelet Volume 9.8 FL (9.5-12.2); Monocytes # (A) 0.45 X 10*3/uL (0.20-1.00); Monocytes % (A) 6.2 %; NRBC Per 100 WBC 0 X 10*3/uL (0.00-0.01); Neutrophils # (A) 3.47 X 10*3/uL (1.80-7.70); Neutrophils % (A) 47.5 %; Platelet Count 320 X 10*3/uL (140-440); RBC 4.16 X 10*6/uL (4.10-5.20); RDW 13.5 % (11.5-14.5)
[2023-02-27 12:23] LABS: ALT 31 U/L (8-44); AST 16 U/L (13-35); Albumin 4.3 d/dL (3.8-4.9); Albumin/Globulin Ratio 1.72 Ratio (1.60-3.17); Alkaline Phosphatase 103 U/L (41-126); BUN/Creat Ratio 12.38 Ratio (12.00-20.00); Blood Urea Nitrogen 9.9 mg/dL (9.0-27.0); Calcium 9.4 mg/dL (8.7-10.3); Carbon Dioxide 27.9 mmol/L (21.6-31.8); Chloride 100 mmol/L (96-109); Chol/HDL Ratio 5.75 Ratio; Globulin 2.5 d/dL (1.6-3.3); Glucose 96 mg/dL (70-110); LDL Cholesterol,Calculated 181.6 mg/dL (0.0-131.0); Potassium 4.9 mmol/L (3.5-5.5); Sodium 141 mmol/L (135-145); Total Bilirubin 0.3 mg/dL (0.3-1.2); Total Protein 6.8 d/dL (6.2-8.2); Valproic Acid (Depakene) 24.6 UG/ML (50.0-100.0)
== END | disposition home or self-care (01) ==
LOC: LABWHC1 12:38
PROVIDERS: ATTEND Counselor Professional
DX: F31.32 Bipolar disorder, current episode depressed, moderate (principal)
CPT/HCPCS: 36415; 80053; 80061; 80164; 83036; 83721; 85025

== ENCOUNTER → 2023-11-27 | Outpatient (CLI) | payer BC ==
[2023-11-27 17:00] LABS: Basophils # (A) 0.09 X 10*3/uL (0.00-0.10); Basophils % (A) 0.9 %; HCT 41.5 % (37.2-46.3); HGB 14.1 g/dL (12.0-15.0); Lymphocytes # (A) 4.76 X 10*3/uL (0.90-5.00); Lymphocytes % (A) 46.6 %; MCH 31.5 pg (27.0-32.0); MCV 92.8 FL (80.0-97.0); Mean Platelet Volume 10.4 FL (9.5-12.2); Monocytes # (A) 0.58 X 10*3/uL (0.20-1.00); Monocytes % (A) 5.7 %; NRBC Per 100 WBC 0 X 10*3/uL (0.00-0.01); Neutrophils # (A) 4.66 X 10*3/uL (1.80-7.70); Neutrophils % (A) 45.5 %; Platelet Count 291 X 10*3/uL (140-440); RBC 4.47 X 10*6/uL (4.10-5.20); RDW 13.6 % (11.5-14.5); WBC 10.22 X 10*3/uL (4.50-10.00)
[2023-11-27 17:27] LABS: ALT 21 U/L (8-44); AST 13 U/L (13-35); Albumin 4.6 g/dL (3.8-4.9); Albumin/Globulin Ratio 1.92 Ratio (1.60-3.17); Alkaline Phosphatase 96 U/L (41-126); Blood Urea Nitrogen 9.2 mg/dL (9.0-27.0); Calcium 9.5 mg/dL (8.7-10.3); Carbon Dioxide 25.4 mmol/L (21.6-31.8); Chloride 108 mmol/L (96-109); Chol/HDL Ratio 3.82 Ratio; Globulin 2.4 g/dL (1.6-3.3); Glucose 112 mg/dL (70-110); LDL Cholesterol,Calculated 82.3 mg/dL (0.0-131.0); Potassium 4.6 mmol/L (3.5-5.5); Sodium 142 mmol/L (135-145); Total Bilirubin 0.4 mg/dL (0.3-1.2)
[2023-11-27 18:43] LABS: Valproic Acid (Depakene) 63.4 UG/ML (50.0-100.0)
== END | disposition home or self-care (01) ==
LOC: LABWHC1 11:24
PROVIDERS: ATTEND Counselor Professional
DX: F31.32 Bipolar disorder, current episode depressed, moderate (principal)
CPT/HCPCS: 36415; 80053; 80061; 80164; 83036; 85025

== ENCOUNTER → 2023-12-27 | Outpatient (CLI) | payer BC ==
--- NOTE | 2023-12-30 09:27 | MM ---
Reason for Exam: Screening (asymptomatic). Patient History: Menarche at age 15. Patient has no children. Risk Values: [place] 5 year model risk: 0.7%. NCI Lifetime model risk: 9.9%. Tissue Density: The breasts are heterogeneously dense, which may obscure small masses. Findings: Analyzed By CAD. There is no suspicious group of microcalcifications or new suspicious mass in either breast. Overall Assessment: Benign, BI-RAD 2 Management: Screening Mammogram of both breasts in 1 year. . Patient should continue monthly self-breast exams. A clinical breast exam by your physician is recommended on an annual basis. This exam should not preclude additional follow-up of suspicious palpable abnormalities. Note on [place] scores and lifetime risk: 1. A [place] score greater than 3% is considered moderate risk. If this is the case, consider specialist referral to assess eligibility for a risk reducing agent. 2. If overall lifetime risk for the development of breast cancer is 20% or higher, the patient may qualify for future screening with alternating mammogram and breast MRI. Electronically signed and approved by: Сергей Macdonald M.D. Radiologis
== END | disposition home or self-care (01) ==
LOC: RADMAMWWP 08:58
PROVIDERS: ATTEND Family Medicine
DX: Z12.31 Encounter for screening mammogram for malignant neoplasm of breast (principal)
CPT/HCPCS: 77063; 77067

== ENCOUNTER → 2024-09-11 | Outpatient (CLI) | payer BC, OTHER ==
--- NOTE | 2024-09-11 11:38 | XR ---
EXAMINATION TYPE: XR chest 2V DATE OF EXAM: 09/11/2024 10:58 AM COMPARISON: None CLINICAL INDICATION: Female, 44 years old with history of J18.9 PNEUMONIA, , TECHNIQUE: Frontal and lateral views FINDINGS: The cardiomediastinal silhouette, aorta, and pulmonary vasculature are within normal limits. Hazy low er lung densities relating to overlying soft tissue. Otherwise, lungs and pleural spaces are clear. IMPRESSION: No acute cardiopulmonary process. [facility], , 09/11/2024 11:36 AM
--- NOTE | 2024-09-11 11:57 | XR ---
EXAMINATION TYPE: XR lumbosacral spine 5V, XR sacroiliac joint comp 3 views BILAT DATE OF EXAM: 09/11/2024 10:58 AM COMPARISON: None CLINICAL INDICATION: Female, 44 years old with history of M54.50 LOW BACK PAIN, , FINDINGS: Lumbar spine: 5 lumbar type vertebral bodies. Mild facet arthropathy mid to lower lumbar spine. There may be minima l disc interspace narrowing L4-L5 and L5 this is 1. Mild degenerative disc disease also noted in the lower thoracic spine. Vertebral body heights are preserved and alignment is maintained. SI joints: No subarticular erosion at the SI joints. Minimal subarticular sclerosis may be present. Small deline ation to the arcuate lines of the sacrum. IMPRESSION: 1. Lumbar spine: Mild degenerative disc disease L4-L5 and L5-S1. Mild facet arthropathy mid to lower lumbar spine. Additional mild degenerative disc disease lower thoracic spine. No vertebral compressio n collapse or malalignment. 2. SI joints: There may be mild degenerative change in the bilateral SI joints. No erosive change to suggest a sacroiliitis. [facility], , 09/11/2024 11:55 AM
== END | disposition home or self-care (01) ==
LOC: LABWHC1 09:44
PROVIDERS: ATTEND Internal Medicine Sleep Medicine
DX: M54.50 Low back pain, unspecified (principal); J18.9 Pneumonia, unspecified organism; G89.29 Other chronic pain; R25.2 Cramp and spasm
CPT/HCPCS: 36415; 71046; 72110; 72202; 82785; 86001; 86003; 86606; 86609

== ENCOUNTER → 2024-12-10 | Outpatient (CLI) | payer BC, OTHER ==
[2024-12-10 18:42] LABS: Basophils # (A) 0.06 X 10*3/uL (0.00-0.10); Basophils % (A) 1.1 %; Eosinophils # (A) 0.07 X 10*3/uL (0.04-0.35); Eosinophils % (A) 1.3 %; HCT 39.4 % (37.2-46.3); HGB 12.8 g/dL (12.0-15.0); MCH 30.2 pg (27.0-32.0); MCHC 32.5 g/dL (32.0-37.0); MCV 92.9 FL (80.0-97.0); Mean Platelet Volume 10.4 FL (9.5-12.2); Monocytes # (A) 0.44 X 10*3/uL (0.20-1.00); Monocytes % (A) 8.3 %; NRBC Per 100 WBC 0 X 10*3/uL (0.00-0.01); Neutrophils # (A) 2.35 X 10*3/uL (1.80-7.70); Neutrophils % (A) 44.1 %; Platelet Count 278 X 10*3/uL (140-440); RBC 4.24 X 10*6/uL (4.10-5.20); RDW 13.5 % (11.5-14.5); WBC 5.33 X 10*3/uL (4.50-10.00)
[2024-12-10 19:21] LABS: BUN/Creat Ratio 14.62 Ratio (12.00-20.00); Blood Urea Nitrogen 11.7 mg/dL (9.0-27.0); Calcium 9.4 mg/dL (8.7-10.3); Carbon Dioxide 24.6 mmol/L (21.6-31.8); Chloride 102 mmol/L (96-109); Glucose 118 mg/dL (70-110); Potassium 4.4 mmol/L (3.5-5.5); Sodium 140 mmol/L (135-145); Valproic Acid (Depakene) 48.9 UG/ML (50.0-100.0)
== END | disposition home or self-care (01) ==
LOC: LABWHC1 11:58
PROVIDERS: ATTEND Psychiatry & Neurology Psychiatry
DX: F31.32 Bipolar disorder, current episode depressed, moderate (principal)
CPT/HCPCS: 36415; 80048; 80164; 82306; 85025